=== PATIENT | female | born 1945 | race Caucasian/White ===

== ENCOUNTER 2016-09-22 11:19 | Emergency (ER) | payer OTHER, BC ==
[~2016-09-22] VITALS: Ht 160 cm; Wt 72.7 kg
[2016-09-22] MEDS ORDERED: NAPROXEN250 MG PO (13:06)
[2016-09-22] MEDS ORDERED: PRILOSEC10 MG PO (13:06)
[2016-09-22] MEDS ORDERED: MOTRIN800 MG PO (16:39)
[2016-09-22] MEDS ORDERED: NORCO 7.5/321 TABLET PO (16:39)
[2016-09-22 17:14] VITALS: BP 171/88
== END 2016-09-22 17:15 | disposition home or self-care (01) ==
LOC: EME 11:19
PROC: 0RSKXZZ Reposition Left Shoulder Joint, External Approach (ICD-10-PCS; principal; 2016-09-22)
DX: S43.015A Anterior dislocation of left humerus, initial encounter (principal); S70.02XA Contusion of left hip, initial encounter; W00.0XXA Fall on same level due to ice and snow, initial encounter; R11.2 Nausea with vomiting, unspecified
CPT/HCPCS: 73030; 99281; 99285; J1170; J1885; J2405; J3010